=== PATIENT | female | born 1980 | race Two or more races ===

== ENCOUNTER 2019-02-26 20:36 | Emergency (ER) | payer OTHER ==
--- NOTE | 2019-02-26 20:43 | PDOC ---
History of Present Illness - General Chief Complaint: Pain Stated Complaint: HEADACHE AND DIZZY X 3 DAYS Time Seen by Provider: 02/26/19 20:39 History Source: Patient, Spouse () Exam Limitations: No Limitations - History of Present Illness Initial Comments: 02/26/19 21:08 Javier Teixeira is a 38yo previously healthy female presenting with dizziness and headache. She states that it started 3 days ago while she was working at the [employer]. She has had these episodes intermittently for some time, but not this severe. Since then, the episodes have been increasing in frequency and severity. During these episodes, she notes associated tunnel vision, feeling hot /cold, and lightheaded. Headache is bilateral, band like pain. Dizzy episodes occur at random times throughout the day. No trauma, loss of consciousness. Taking naps help relieve the symptoms. Tylenol did not relieve her headache. Past History - Past Medical History Allergies/Adverse Reactions: Allergies Allergy/AdvReac Type Severity Reaction Status Date / Time No Known Allergies Allergy Verified 02/26/19 20:37 Home Medications: Ambulatory Orders NK [No Known Home Medication] 02/26/19 Asthma: No Cancer: No Cardiac Disorders: No COPD: No Diabetes: No GI Disorders: Yes (hiatal hernia) HTN: No Seizures: No Thyroid Disease: No - Reproductive History LMP Normal: Yes (last week) Comment:: 02/26/19 21:17 sexually active past 6mo, no condoms, has IUD - Suicide/Smoking/Psychosocial Hx Smoking History: Never smoked Have you smoked in the past 12 months: No Number of Cigarettes Smoked Daily: 0 Information on smoking cessation initiated: No Hx Alcohol Use: No Drug/Substance Use Hx: No Hx Substance Use Treatment: No Review of Systems - Review of Systems Is the patient limited Lao proficient: No Constitutional: Yes: Weight Stable. No: Chills, Fever HEENTM: Yes: Blurred Vision (tunnel vision). No: Nose Pain Respiratory: No: Cough, Shortness of Breath Cardiac (ROS): Yes: Chest Pain (mild, left chest), Lightheadedness, Palpitations. No: Chest Tightness ABD/GI: Yes: Constipated. No: Diarrhea, Poor Appetite, Vomiting : No: Burning, Dysuria, Pain, Urgency Musculoskeletal: No: Joint Pain, Joint Swelling, Joint Stiffness Integumentary: No: Dryness, Flushing, Pruritus, Rash, Sweating Neurological: Yes: Headache (bilateral, band like), Dizziness. No: Tingling, Tremors Endocrine: No: Excessive Sweating, Flushing, Change in Weight *Physical Exam - Vital Signs Last Vital Signs Temp Pulse Resp BP Pulse Ox 98.7 F 70 16 107/63 99 02/26/19 20:38 02/26/19 20:38 02/26/19 20:38 02/26/19 20:38 02/26/19 20:38 - Physical Exam General Appearance: Yes: Nourished, Appropriately Dressed, Other (tired looking) HEENT: positive: ALEAH, Normal Voice, Photophobia, Hearing Grossly Normal. negative: Nasal Congestion, Lesions Respiratory/Chest: positive: Lungs Clear, Normal Breath Sounds Cardiovascular: positive: Regular Rhythm, Regular Rate, S1, S2. negative: Murmur Gastrointestinal/Abdominal: positive: Flat, Soft. 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 Tordol, reglan. oral hydration for headache. Orthostatics BPs normal neg HCG Javier Teixeira is a 38yo previously healthy female presenting with dizziness and headache. Concern for migraine with aura vs vertigo vs vasovagal syncope based on symptom presentation. Low suspicion for cardiac origin based on patient profile and lack of cardiac history. Given tordol, reglan, and oral hydration to relieve headache. Negative HCG, normal orthostatics. Discharged home to rest with orders to follow up with PCP. *DC/Admit/Observation/Transfer Diagnosis at time of Disposition: Dizziness, nonspecific - Discharge Dispostion Disposition: HOME Condition at time of disposition: Stable Decision to Admit order: No - Referrals Referrals: Jerome Andrews MD [Primary Care Provider] - - Patient Instructions Printed Discharge Instructions: DI for Headache Additional Instructions: You were given medication to help with your headache. Please take it easy and rest at home tonight to relieve headache. The lab work did not show anything concerning Follow up with primary care doctor if headache and dizziness not resolved. Come back to the emergency room if worsening headache, vomiting, or new onset fevers. - Post Discharge Activity Forms/Work/School Notes: Back to Work
[2019-02-26 20:56] VITALS: TEMP 98.7; BMI 29.4
[2019-02-26] MEDS ORDERED: KETOROLAC TROMETHAMINE 60 MG/2 ML VIAL IM ONE (21:05)
[2019-02-26] MEDS ORDERED: METOCLOPRAMIDE HCL 10 MG TABLET (FP) PO ONE ×2 (21:06→21:08)
[2019-02-26] MEDS ORDERED: KETOROLAC TROMETHAMINE 60 MG/2 ML VIAL ONE (21:08)
[2019-02-26 21:44] VITALS: BP 105/67; PULSE 68
--- NOTE | 2019-02-26 21:58 | PDOC ---
Documentation entered by Mishel Pratt SCRIBE, acting as scribe for Olena Luna MD. Olena Luna MD: This documentation has been prepared by the Santa goodwin Sammi, SCRIBE, under my direction and personally reviewed by me in its entirety. I confirm that the documentation accurately reflects all work, treatment, procedures, and medical decision making performed by me. Attending Attestation - Resident Resident Name: Juwan Rodriguez - [facility] HPI: 02/26/19 21:21 The patient is a 38 year old female who presents to the emergency department for evaluation of 3 days of intermittent bilateral bandlike headache and dizziness, with associated blurry vision and hot/cold flashes. Denies LOC or head trauma. The patient notes when she experiences dizziness she takes a nap. She reports that she has experienced these symptoms before but has not done anything for relief. PAST MEDICAL HISTORY: no significant history PAST SURGICAL HISTORY: no significant history FAMILY HISTORY: no pertinent history SOCIAL HISTORY: Pt lives with family and is employed. MEDICATIONS: reviewed ALLERGIES: As per nursing notes Adult ROS General: (+) hot/cold flashes, no weakness, no weight loss HEENT: (+)blurry vision No sore throat,. No ear pain CardioVascular: No chest pain or shortness of breath Respiratory:No cough, or wheezing. Gastrointestinal: no nausea, vomiting, diarrhea or constipation, No rectal bleeding Genitourinary: No dysuria, hematuria, or frequency Musculoskeletal: No joint or muscle pain or swelling Neurologic: (+)headache, (+)dizziness vertigo, or loss of consciousness All other systems reviewed and normal - Physicial Exam PE: 02/26/19 21:22 Adult Physical Exam GENERAL: The patient is awake, alert, and fully oriented, in no acute distress. HEAD: Normal with no signs of trauma. EYES: Pupils equal, round and reactive to light, extraocular movements intact, sclera anicteric, conjunctiva clear. EXTREMITIES: Normal range of motion, no edema. NEUROLOGICAL: Normal speech, normal gait. PSYCH: Normal mood, normal affect. SKIN: Warm, Dry, normal turgor, no rashes or lesions noted. - Medical Decision Making 02/26/19 22:02 Assessment and plan: This is a 38 year old female who comes in complaining of intermittent episodes of headache associated with some vertigo type dizziness. The headache is preceded by the dizziness. Patient said that she has not taken anything for the headache or the dizziness. Patient had normal vitals, normal neuro exam and no orthostatics here in the ED. Patient orally hydrated and was given Toradol for the headache as well as some Reglan. Patient was minimally improved and does have a primary care doctor she can follow up with. Patient discharged home with her .
--- NOTE | 2019-02-27 13:49 | EKG ---
Test Reason : Blood Pressure : / mmHG Vent. Rate : 067 BPM Atrial Rate : 067 BPM P-R Int : 112 ms QRS Dur : 092 ms QT Int : 394 ms P-R-T Axes : -01 033 014 degrees QTc Int : 416 ms NORMAL SINUS RHYTHM NORMAL ECG WHEN COMPARED WITH ECG OF 25-JUN-2015 23:26, NONSPECIFIC T WAVE ABNORMALITY NO LONGER EVIDENT IN ANTERIOR LEADS Confirmed by MD JASMIN, ANIL ([id number]) on 02/27/2019 1:49:01 PM Referred By: AARON RACHEL Confirmed By:ANIL CASTELLANOS MD
== END 2019-02-26 22:15 | disposition home or self-care (01) ==
LOC: FER 20:36 → SUPCPDRO 20:36 → FER 22:15
PROC: 3E0233Z Introduction of Anti-inflammatory into Muscle, Percutaneous Approach (ICD-10-PCS; principal; 2019-02-26)
DX: R42 Dizziness and giddiness (principal)
CPT/HCPCS: 84703; 93005; 99282-25

== ENCOUNTER 2019-04-29 21:52 | Emergency (ER) | payer OTHER ==
[2019-04-29 22:10] VITALS: BP 103/72; PULSE 86; TEMP 98; BMI 28.3
[2019-04-30] MEDS ORDERED: KETOROLAC TROMETHAMINE 60 MG/2 ML VIAL IM ONE (00:05)
--- NOTE | 2019-04-30 00:06 | PDOC ---
History of Present Illness - General Chief Complaint: Back Pain Stated Complaint: back pain Time Seen by Provider: 04/29/19 22:04 History Source: Patient Exam Limitations: No Limitations - History of Present Illness Initial Comments: 04/30/19 00:06 This is a 38 her old female who comes in complaining of posterior neck and upper back pain. Patient said she slipped and fell in the shower 48 hours ago and has had progressive pain since then. Patient took some ibuprofen earlier in the day for the pain. Patient said she did not hit her head or pass out. Patient Is otherwise healthy. Patient denies any headache , blurry vision or any other complaints. Allergies: as per nursing notes Past Medical History: none Social history: Lives with family. No smoking. No alcohol. No illicit drugs. Surgical history: None General: No fevers or chills, no weakness, no weight loss HEENT: No change in vision. No sore throat,. No ear pain CardioVascular: no chest discomfort. No shortness of breath Respiratory:No cough, or wheezing. Gastrointestinal: no nausea, vomiting, diarrhea or constipation, No rectal bleeding Genitourinary: No dysuria, hematuria, or frequency Musculoskeletal: No joint or muscle pain or swelling Neurologic: No headache, vertigo, dizziness or loss of consciousness Psychiatric: nor depression Skin: No rashes or easy bruising Endocrine: no increased thirst or abnormal weight change Allergic: no skin or latex allergy All other systems reviewed and normal Exam: General: Well-nourished well-developed individual, no acute distress HEENT: Throat: Normal, tonsils normal, no erythema or exudate Neck: Supple, no meningeal signs, no lymphadenopathy, cervical spine there is some mild tenderness on palpation of the lower cervical spine. Eyes::Pupils equal reactive and round, extraocular motion intact Chest: Nontender to palpation Cardiac: S1-S2 normal, regular rate and rhythm, no murmurs rubs or gallops Respiratory: Lungs clear to auscultation bilateral Abdomen: Soft, nondistended, normal bowel sounds, there is no tenderness on palpation diffusely Back: There is some tenderness on palpation of the upper muscles of the back. There is no thoracic lumbar or sacral spine tenderness. Extremities: Warm, dry, no cyanosis, clubbing, or edema Skin: No rashes Neuro: Alert and oriented x3, CN II - XII intact, nonfocal exam with normal strength, normal sensation, normal reflexes, normal gait, Psych: Normal mood and affect Time: This a 38 her old female who comes in status post post fall 48 hours ago in the shower. Patient had x-ray of her cervical spine as there was some tenderness of the lower cervical spine. X-ray was negative for any acute pathology as read by me. Patient given Toradol for the pain Patient discharged home told to continue to take ibuprofen or Tylenol for the pain and follow-up with her primary care doctor in one week if not improved. Past History - Past Medical History Allergies/Adverse Reactions: Allergies Allergy/AdvReac Type Severity Reaction Status Date / Time No Known Allergies Allergy Verified 02/26/19 20:37 Home Medications: Ambulatory Orders NK [No Known Home Medication] 02/26/19 Asthma: No Cancer: No Cardiac Disorders: No COPD: No Diabetes: No GI Disorders: Yes (hiatal hernia) HTN: No Seizures: No Thyroid Disease: No - Suicide/Smoking/Psychosocial Hx Smoking History: Never smoked Have you smoked in the past 12 months: No Number of Cigarettes Smoked Daily: 0 Information on smoking cessation initiated: No Hx Alcohol Use: No Drug/Substance Use Hx: No Hx Substance Use Treatment: No *Physical Exam - Vital Signs Last Vital Signs Temp Pulse Resp BP Pulse Ox 98 F 86 20 103/72 100 04/29/19 22:04 04/29/19 22:04 04/29/19 22:04 04/29/19 22:04 04/29/19 22:04 *DC/Admit/Observation/Transfer Diagnosis at time of Disposition: Cervical strain, acute Fall Qualifiers: Encounter type: initial encounter Qualified Code(s): W19.XXXA - Unspecified fall, initial encounter - Discharge Dispostion Disposition: HOME Decision to Admit order: No - Referrals - Patient Instructions Additional Instructions: Take ibuprofen 3 tablets 3 times a day with food don't take on an empty stomach for the pain. Return to the emergency department immediately with ANY new, persistent or worsening symptoms. Continue any medications as previously prescribed by your physician. You should follow up with your primary doctor as soon as possible regarding today's emergency department visit. . Please make sure your doctor reviews the results of your emergency evaluation. Thank you for coming to the Emergency Department today for your care. It was a pleasure to see you today. Please note that your evaluation is INCOMPLETE until you follow-up with your doctor. - Post Discharge Activity
[2019-04-30] MEDS ORDERED: KETOROLAC TROMETHAMINE 60 MG/2 ML VIAL ONE (00:14)
== END 2019-04-30 00:48 | disposition home or self-care (01) ==
LOC: FER 21:52
PROC: 3E0233Z Introduction of Anti-inflammatory into Muscle, Percutaneous Approach (ICD-10-PCS; principal; 2019-04-29)
DX: Z04.3 Encounter for examination and observation following other accident (principal); W18.39XA Other fall on same level, initial encounter; Y93.89 Activity, other specified; Y92.002 Bathroom of unspecified non-institutional (private) residence as the place of occurrence of the external cause
CPT/HCPCS: 72050-TC-FY; 99281-25

== ENCOUNTER 2019-05-08 19:17 | Emergency (ER) | payer OTHER ==
--- NOTE | 2019-05-08 19:25 | PDOC ---
Rapid Medical Evaluation Time Seen by Provider: 05/08/19 19:18 Medical Evaluation: Allergies Allergy/AdvReac Type Severity Reaction Status Date / Time No Known Allergies Allergy Verified 05/08/19 19:23 Vital Signs Temp Pulse Resp BP Pulse Ox 98.8 F 88 17 126/75 100 05/08/19 19:20 05/08/19 19:20 05/08/19 19:20 05/08/19 19:20 05/08/19 19:20 05/08/19 19:23 The patient presents with a chief complaint of: low back pain and neck pain x 2 weeks since slipped in shower. went to [facility] and had cervical xray with - findings. pt took motrin with no relief. No radiation or other complaints presently I have performed a brief in-person evaluation of this patient. Pertinent physical exam findings: lumbar tenderness kiley and mild l4 tenderness I have ordered the following: lumbar xray The patient will proceed to the ED for further evaluation. Discharge Disposition - Diagnosis Fall - Referrals - Patient Instructions - Post Discharge Activity
[2019-05-08 19:38] VITALS: BP 126/75; PULSE 88; TEMP 98.8; BMI 28.6
[2019-05-08] MEDS ORDERED: KETOROLAC TROMETHAMINE 60 MG/2 ML VIAL IM ONE (20:16)
[2019-05-08] MEDS ORDERED: KETOROLAC TROMETHAMINE 60 MG/2 ML VIAL ONE (20:18)
--- NOTE | 2019-05-08 20:20 | PDOC ---
History of Present Illness - General Chief Complaint: Back Pain Stated Complaint: BACK PAIN Time Seen by Provider: 05/08/19 19:18 - History of Present Illness Initial Comments: 05/08/19 20:17 38 y/o F w/o CM presents for evaluation of LBP with L posterior lateral leg radiculopathy. No systemic symptoms or loss of bowel or bladder function. Past History - Past Medical History Allergies/Adverse Reactions: Allergies Allergy/AdvReac Type Severity Reaction Status Date / Time No Known Allergies Allergy Verified 05/08/19 19:23 Home Medications: Ambulatory Orders Cyclobenzaprine HCl [Flexeril 10 mg] 10 mg PO HS PRN #10 tablet 05/08/19 Methylprednisolone [Medrol Dose Dov] 4 mg PO ASDIR #21 tablet 05/08/19 Asthma: No Cancer: No Cardiac Disorders: No COPD: No Diabetes: No GI Disorders: Yes (hiatal hernia) HTN: No Seizures: No Thyroid Disease: No - Immunization History Immunization Up to Date: Yes - Suicide/Smoking/Psychosocial Hx Smoking History: Never smoked Have you smoked in the past 12 months: No Number of Cigarettes Smoked Daily: 0 Information on smoking cessation initiated: No Hx Alcohol Use: No Drug/Substance Use Hx: No Hx Substance Use Treatment: No Review of Systems - Review of Systems Constitutional: No: Fever Musculoskeletal: Yes: Back Pain *Physical Exam - Vital Signs Last Vital Signs Temp Pulse Resp BP Pulse Ox 98.8 F 88 17 126/75 100 05/08/19 19:20 05/08/19 19:20 05/08/19 19:20 05/08/19 19:20 05/08/19 19:20 - Physical Exam Comments: 05/08/19 20:18 Lumbar spine skin color and temperature are normal. There isdecreased range of motion. 5 out of 5 strength in bilateral lower extremities.Straight leg raise test is negative bilaterally. Thighs and calves are soft and nontender. There are no gross sensory motor deficits. Neurovascularly intact. Moderate B para lumbar muscular spasm no midline tenderness Medical Decision Making - Medical Decision Making 05/08/19 20:19 Lumbar radiculopathy x-rays mild DDD *DC/Admit/Observation/Transfer Diagnosis at time of Disposition: Lumbar radiculopathy Diagnosis at time of Disposition: (Ruled Out): Fall - Discharge Dispostion Disposition: HOME Condition at time of disposition: Stable Decision to Admit order: No - Prescriptions Prescriptions: Cyclobenzaprine HCl [Flexeril 10 mg] 10 mg PO HS PRN #10 tablet PRN Reason: Muscle Spasms Methylprednisolone [Medrol Dose Dov] 4 mg PO ASDIR #21 tablet - Referrals Referrals: Jerome Andrews MD [Primary Care Provider] - Dwain Calvo MD, FA[facility] [Staff Physician] - - Patient Instructions Additional Instructions: Please start steroid pack in the morning. Take the medication as directed. The muscle relaxers one tablet before bedtime and will make you sleepy. He may take Tylenol as directed in addition to the steroid pack. Avoid anti-inflammatory such as Advil Motrin Aleve and ibuprofen. You're given an injection of a long- acting anti-inflammatory in the emergency room do not take any anti- inflammatories. Return to the emergency room should symptoms worsen or go unresolved and follow- up with neuro or spine surgery without fail in 1-2 days for further evaluation and treatment options. - Post Discharge Activity
== END 2019-05-08 20:28 | disposition home or self-care (01) ==
LOC: JERFT 19:17 → JER 19:17 → JERFT 20:28
PROC: 3E0233Z Introduction of Anti-inflammatory into Muscle, Percutaneous Approach (ICD-10-PCS; principal; 2019-05-08)
DX: M51.16 Intervertebral disc disorders with radiculopathy, lumbar region (principal); M62.830 Muscle spasm of back; W18.2XXD Fall in (into) shower or empty bathtub, subsequent encounter
CPT/HCPCS: 72100-TC-FY; 96372; 99281-25

== ENCOUNTER 2019-06-14 20:03 | Emergency (ER) | payer OTHER ==
--- NOTE | 2019-06-14 20:06 | PDOC ---
Rapid Medical Evaluation Time Seen by Provider: 06/14/19 20:05 Medical Evaluation: Allergies Allergy/AdvReac Type Severity Reaction Status Date / Time No Known Allergies Allergy Verified 05/08/19 19:23 06/14/19 20:05 I have performed a brief in-person evaluation of this patient. The patient presents with a chief complaint of: R shoulder pain s/p slip and fall yesterday Pertinent physical exam findings: FROM to R shoulder but with pain I have ordered the following: R shoulder xray The patient will proceed to the ED for further evaluation. Discharge Disposition - Diagnosis Right shoulder pain - Referrals - Patient Instructions - Post Discharge Activity
[2019-06-14 20:07] VITALS: BP 106/40; PULSE 68; TEMP 98.1; BMI 29.4
[2019-06-14] MEDS ORDERED: KETOROLAC TROMETHAMINE 60 MG/2 ML VIAL IM ONE (21:16)
[2019-06-14] MEDS ORDERED: KETOROLAC TROMETHAMINE 60 MG/2 ML VIAL ONE (21:19)
--- NOTE | 2019-06-14 21:21 | PDOC ---
History of Present Illness - General Chief Complaint: Pain, Acute Stated Complaint: SHOULDER PAIN Time Seen by Provider: 06/14/19 20:05 History Source: Patient Exam Limitations: No Limitations - History of Present Illness Initial Comments: 06/14/19 21:17 HISTORY OF PRESENT ILLNESS: This a 38-year-old woman who denies medical history presents to the emergency department for evaluation of right shoulder pain status post slip and fall. 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 Patient reports she did not strike her head and denies any loss of consciousness. Patient reports she struck her left arm on some of the surrounding furniture. No recent travel or sick contacts. PAST MEDICAL HISTORY: Denies past medical history SURGICAL HISTORY: Denies ALLERGIES: No known drug allergies REVIEW OF SYSTEMS General/Constitutional: Denies fever or chills. Denies weakness, weight change. HEENT: Denies change in vision. Denies ear pain or discharge. Denies sore throat. Cardiovascular: Denies chest pain or shortness of breath. Respiratory: Denies cough, wheezing, or hemoptysis. Gastrointestinal: Denies nausea, vomiting, diarrhea or constipation. Denies rectal bleeding. Genitourinary: Denies dysuria, frequency, or change in urination. Musculoskeletal: See HPI Skin and breasts: Denies rash or easy bruising. Neurologic: Denies headache, vertigo, loss of consciousness, or loss of sensation. Psychiatric: Denies depression or anxiety. Endocrine: Denies increased thirst. Denies abnormal weight change. Hematologic/Lymphatic: Denies anemia, easy bleeding, or history of blood clots. Allergic/Immunologic: Denies hives or skin allergy. Denies latex allergy. PHYSICAL EXAM General Appearance: Well-appearing, appropriately dressed. No apparent distress , no intoxication. Respiratory/Chest: Lungs CTAB. No shortness of breath, chest tenderness, respiratory distress, accessory muscle use. No crackles, rales, rhonchi, stridor , wheezing, dullness Cardiovascular: RRR. S1, S2. No JVD, murmur, bradycardia, tachycardia. Vascular Pulses: Dorsalis-Pedis (R): 2+, Dorsalis-Pedis (L): 2+ Musculoskeletal/Extremities: Normal inspection. FROM of all extremities, normal capillary refill. Pelvis Stable. No CVA tenderness. No tenderness to extremities, pedal edema, swelling, erythema or deformity. Integumentary: Intermittent ecchymosis present to bilateral upper extremities. 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 Fully oriented, alert. Appropriate mood/affect. Motor strength 5/5. No appreciable EOM palsy, facial droop or sensory deficit. Past History - Past Medical History Allergies/Adverse Reactions: Allergies Allergy/AdvReac Type Severity Reaction Status Date / Time No Known Allergies Allergy Verified 06/14/19 20:07 Home Medications: Ambulatory Orders Cyclobenzaprine HCl [Flexeril 10 mg] 10 mg PO HS PRN #10 tablet 05/08/19 Methylprednisolone [Medrol Dose Dov] 4 mg PO ASDIR #21 tablet 05/08/19 Asthma: No Cancer: No Cardiac Disorders: No COPD: No Diabetes: No GI Disorders: Yes (hiatal hernia) HTN: No Seizures: No Thyroid Disease: No - Immunization History Immunization Up to Date: Yes - Psycho Social/Smoking Cessation Hx Smoking History: Never smoked Have you smoked in the past 12 months: No Number of Cigarettes Smoked Daily: 0 Hx Alcohol Use: No Drug/Substance Use Hx: No Hx Substance Use Treatment: No *Physical Exam - Vital Signs Last Vital Signs Temp Pulse Resp BP Pulse Ox 98.1 F 68 18 106/40 L 100 06/14/19 20:05 06/14/19 20:05 06/14/19 20:05 06/14/19 20:05 06/14/19 20:05 Medical Decision Making - Medical Decision Making 06/14/19 21:19 A/P: 38-year-old woman with right shoulder pain status post slip and fall X-rays performed by our me reveals no fracture or dislocation of the shoulder. Questionable small AC separation present. Toradol 60 mg IM now Sling Discharge home to follow-up with orthopedics as needed I discussed the physical exam findings, ancillary test results and final diagnoses with the patient. I answered all of the patient's questions. The patient was satisfied with the care received and felt comfortable with the discharge plan and treatment plan. The patient will call their primary care physician within 24 hours to arrange follow-up and will return to the Emergency Department with any new, persistent or worsening symptoms. 10/17/19 21:20 Discharge - Discharge Information Problems reviewed: Yes Clinical Impression/Diagnosis: Right shoulder pain Qualifiers: Chronicity: acute Qualified Code(s): M25.511 - Pain in right shoulder Condition: Stable Disposition: HOME - Admission No - Follow up/Referral Referrals: Jerome Andrews MD [Primary Care Provider] - Ken Martins MD [Staff Physician] - - Patient Discharge Instructions Additional Instructions: Take Tylenol or Motrin as needed for pain. Follow manufacturers instructions for appropriate dosage. Apply ice for 20 minutes and removed for at least 20 minutes before reapplying the ice. Keep sling on your shoulder as much as possible. You've been given the number for an orthopedist. If symptoms do not resolve within the next 7 days call the orthopedist for further evaluation. Return to emergency department for discoloration of the fingers, numbness or tingling to the fingers, worsening pain, or any other concerns. Thank you very much for choosing us to provide your emergent healthcare needs. - Post Discharge Activity
== END 2019-06-14 21:28 | disposition home or self-care (01) ==
LOC: JERFT 20:03
PROC: 3E0233Z Introduction of Anti-inflammatory into Muscle, Percutaneous Approach (ICD-10-PCS; principal; 2019-06-14)
DX: S49.81XA Other specified injuries of right shoulder and upper arm, initial encounter (principal); M25.511 Pain in right shoulder; W01.0XXA Fall on same level from slipping, tripping and stumbling without subsequent striking against object, initial encounter; Y93.H9 Activity, other involving exterior property and land maintenance, building and construction; Y92.211 Elementary school as the place of occurrence of the external cause; Y99.0 Civilian activity done for income or pay; Z87.19 Personal history of other diseases of the digestive system
CPT/HCPCS: 73030-TC-RT-FY; 99282-25

== ENCOUNTER 2019-10-13 11:52 | Emergency (ER) | payer OTHER ==
[2019-10-13 12:20] VITALS: BP 116/70; PULSE 78; TEMP 99; BMI 28.3
[2019-10-13] MEDS ORDERED: IBUPROFEN 600 MG TABLET (FP) PO ONE ×2 (12:24→12:42)
--- NOTE | 2019-10-13 12:36 | PDOC ---
History of Present Illness - General Chief Complaint: Cold Symptoms Stated Complaint: COLD SYMPTOMS Time Seen by Provider: 10/13/19 12:08 History Source: Patient Exam Limitations: No Limitations - History of Present Illness Initial Comments: 10/13/19 12:34 Pt is a 39 y/o female who presents to the ED with complaint of bodyaches, headache, cough, sore throat, fever, and loss of appetite for the last 3-4 days. The patient states that she did get a flu shot this year. The patient states that her throat feels sore from her coughing. She denies any vomiting. She has not taken anything for her pain or fevers today. The patient also has a son with similar symptoms. Past History - Past Medical History Allergies/Adverse Reactions: Allergies Allergy/AdvReac Type Severity Reaction Status Date / Time No Known Allergies Allergy Verified 10/13/19 12:04 Home Medications: Ambulatory Orders Cyclobenzaprine HCl [Flexeril 10 mg] 10 mg PO HS PRN #10 tablet 05/08/19 Methylprednisolone [Medrol Dose Dov] 4 mg PO ASDIR #21 tablet 05/08/19 Asthma: No Cancer: No Cardiac Disorders: No COPD: No Diabetes: No GI Disorders: Yes (hiatal hernia) HTN: No Seizures: No Thyroid Disease: No - Immunization History Immunization Up to Date: Yes - Psycho Social/Smoking Cessation Hx Smoking History: Never smoked Have you smoked in the past 12 months: No Number of Cigarettes Smoked Daily: 0 Hx Alcohol Use: No Drug/Substance Use Hx: No Hx Substance Use Treatment: No Review of Systems - Review of Systems Comments:: 10/13/19 12:37 - Review of Systems Able to Perform ROS?: Yes Constitutional: No: Night Sweats, Weakness; Positive: Fever, Chills, Loss of Appetite HEENTM: No: Eye Pain, Vision changes, Ear Pain, Throat Pain, Throat Swelling, Mouth Pain, Difficulty Swallowing Respiratory: No: Shortness of Breath, Wheezing, Sputum Production; Positive: Cough Cardiac (ROS): No: Chest Pain, Chest Tightness, Palpitations, Irregular Heart Beat, Edema ABD/GI: No: Nausea, Vomiting, Abdominal Pain, Diarrhea : No Dysuria, No Hematuria, No Frequency, No Urgency Musculoskeletal: No: Muscle Pain, Back Pain, Joint Pain, Muscle Weakness, Neck Pain; Positive: bodyaches Integumentary: No: Lesions, Rash Neurological: No: Headache, Numbness, Tingling, Weakness, Speech Difficulties *Physical Exam - Vital Signs Last Vital Signs Temp Pulse Resp BP Pulse Ox 99.0 F 78 18 116/70 98 10/13/19 12:04 10/13/19 12:04 10/13/19 12:04 10/13/19 12:04 10/13/19 12:04 - Physical Exam 10/13/19 12:39 - Physical Exam General Appearance: Nourished, Appropriately Dressed, No Distress; General unwell feeling but nontoxic appearing HEENT: EOMI, Normal Voice, No Pharyngeal Erythema, No Muffled/Hoarse voice, No Tonsillar Exudate, No Tonsillar Erythema, No Nasal Congestion, No Rhinorrhea, Hearing Grossly Normal, TMs Normal, No TM Bulging, No TM Dullness, No TM Erythema Neck: Supple, No Lymphadenopathy (R), No Lymphadenopathy (L), No Rigidity, No Decreased range of motion Respiratory/Chest: Lungs Clear, Normal Breath Sounds. No Respiratory Distress, No Accessory Muscle Use Cardiovascular: Regular Rhythm, Regular Rate, S1, S2 Gastrointestinal/Abdominal: Normal Bowel Sounds, Soft. Non-tender, No Guarding , No Rebound, No Rigidity Musculoskeletal: Normal Inspection. No Decreased Range of Motion Extremity: Normal Capillary Refill, Normal Inspection Integumentary: Normal Color, Dry. 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 Plan: Pt is out of the window of Tamiflu so a flu swab is not indicated Motrin given PO in the ED Pt to f/u with her primary doctor within 1-2 days for repeat evaluation. She has been encouraged to get plenty of rest and drink plenty of fluids. She should alternate Tylenol and Motrin for fever or bodyaches. She understands and agrees with treatment and plan and she is stable for discharge. Discharge - Discharge Information Problems reviewed: Yes Clinical Impression/Diagnosis: Flu-like symptoms Condition: Stable Disposition: HOME - Follow up/Referral Referrals: Jerome Andrews MD [Primary Care Provider] - - Patient Discharge Instructions Patient Printed Discharge Instructions: DI for Viral Upper Respiratory Infection -- Adult Additional Instructions: Get plenty of rest and drink plenty of fluids. Alternate Tylenol or ibuprofen for fevers and body aches. Be sure to follow-up with your primary doctor within 1 to 2 days for repeat evaluation. This is likely the flu and can take up to 2 weeks to resolve. - Post Discharge Activity Work/Back to School Note: Back to Work
== END 2019-10-13 12:48 | disposition home or self-care (01) ==
LOC: JER 11:52
DX: J11.1 Influenza due to unidentified influenza virus with other respiratory manifestations (principal)
CPT/HCPCS: 99282-25

== ENCOUNTER 2021-01-12 11:17 | Emergency (ER) | payer OTHER ==
[2021-01-12 11:23] VITALS: BP 116/79; PULSE 91; TEMP 98.5; BMI 29.9
[2021-01-12] MEDS ORDERED: SILVER SULFADIAZINE 1% TOP CREAM 50 GM JAR TP ONE ×2 (11:48→12:06)
[2021-01-12] MEDS ORDERED: CLINDAMYCIN HCL 300 MG CAPSULE PO ONE (12:06)
[2021-01-12] MEDS ORDERED: DIPHTH,PERTUSS(ACELL),TET 0.5 ML DISP.SYRIN IM ONE ×2 (12:07→12:28)
[2021-01-12] MEDS ORDERED: CLINDAMYCIN HCL 150 MG CAPSULE (FP) ONE (12:27)
== END 2021-01-12 12:40 | disposition home or self-care (01) ==
LOC: JER 11:17
PROC: 3E0234Z Introduction of Serum, Toxoid and Vaccine into Muscle, Percutaneous Approach (ICD-10-PCS; principal; 2021-01-12)
DX: T22.211A Burn of second degree of right forearm, initial encounter (principal); L03.113 Cellulitis of right upper limb
CPT/HCPCS: 90471; 90715; 99284-25

== ENCOUNTER 2021-01-27 16:43 | Emergency (ER) | payer OTHER ==
[2021-01-27] MEDS ORDERED: SODIUM CHLORIDE 1,000 ML IV SCH (17:45)
[2021-01-27 18:08] VITALS: TEMP 97.8; BMI 29.1
[2021-01-27 18:43] LABS: BASO % 0.2 % (0-2.0); EOS % 0.4 % (0-4.5); HEMATOCRIT 39.4 % (32.4-45.2); HEMOGLOBIN 12.3 GM/dL (10.7-15.3); LYMPH % 14.3 % (8-40); MCH 21.8 pg (25.7-33.7); MCHC 31.3 g/dl (32.0-36.0); MEAN CELL VOLUME 69.8 fl (80-96); MEAN PLT VOLUME 10.2 fl (7.5-11.1); MONO % 2.4 % (3.8-10.2); NEUT % 82.7 % (42.8-82.8); PLATELET COUNT 292 K/MM3 (134-434); RBC 5.64 M/mm3 (3.60-5.2); RDW 15.4 % (11.6-15.6); WHITE BLOOD COUNT 12.1 K/mm3 (4.0-10.0)
[2021-01-27 19:00] LABS: CHLORIDE 102 mmol/L (98-107); SODIUM 138 mmol/L (136-145)
[2021-01-27 19:02] LABS: CALCIUM 10.2 mg/dL (8.5-10.1)
[2021-01-27 19:03] LABS: ALBUMIN 4.7 g/dl (3.4-5.0); ANION GAP 9 MMOL/L (8-16); BLOOD UREA NITROGEN 11.6 mg/dL (7-18); CO2 26 mmol/L (21-32); GLUCOSE,RANDOM 79 mg/dL (74-106)
[2021-01-27 19:06] LABS: CREATININE 0.6 mg/dL (0.55-1.3); SGOT/AST 18 U/L (15-37); SGPT/ALT 27 U/L (13-61)
[2021-01-27 19:07] LABS: BILIRUBIN,TOTAL 0.9 mg/dL (0.2-1)
[2021-01-27 19:08] LABS: TOT PROT 8.8 g/dl (6.4-8.2)
[2021-01-27 19:09] LABS: ALK PHOS 66 U/L (45-117)
[2021-01-27 22:01] LABS: ANISOCYTOSIS 1+; MACROCYTOSIS 0; PLATELET ESTIMATE NORMAL
[2021-01-27 22:11] VITALS: BP 100/73; PULSE 67
== END 2021-01-27 22:11 | disposition home or self-care (01) ==
LOC: JER 16:43
DX: L29.9 Pruritus, unspecified (principal)
CPT/HCPCS: 36415; 80053; 84484; 84703; 85025; 93005; 93010; 99284-25